=== PATIENT | female | born 1965 | race African-American/Black ===

== ENCOUNTER 2019-12-10 06:04 | Observation (INO) ==
[2019-12-10 06:43] LABS: Basophils % 0.5 % (0.0-0.8); Eosinophils # 0.1 10*3/uL (0.0-0.87); Hematocrit 36.8 VOL% (35.7-47.0); Hemoglobin 11.3 GM/DL (12.0-16.0); Immature Granulocytes % 0.3 %; Immature Granulocytes Absolute 0.02 #; Lymphocytes # 1.7 10*3/uL (1.4-4.0); Mean Corpuscular HGB Conc 30.7 GM/DL (32-36); Mean Corpuscular Volume 98.9 FL (87-102); Mean Platelet Volume 9.6 FL (9.6-12.0); Monocytes % 6.5 % (1.7-12.7); Neutrophils % 69.7 % (38.7-73.9); Platelet Count 273 T/CUMM (130-400); Red Blood Count 3.72 MC/CUMM (3.8-5.5); Red Cell Distribution Width 13.6 % (9.3-17.3); White Blood Count 7.7 T/CUMM (4-12)
[2019-12-10 07:02] LABS: Albumin 3.5 G/DL (3.4-5.0); Bilirubin,Total 1.3 MG/DL (0.2-1.0); Calcium 9.1 MG/DL (8.5-10.1); Osmolality,Calculated 268.4 MOS/KG (273-304); Total Protein 7.7 G/DL (6.4-8.3)
[2019-12-10] MEDS ORDERED: ONDANSETRON 4 MG/2 ML VIAL IV PRN (09:25)
[2019-12-10] MEDS ORDERED: ACETAMINOPHEN 325 MG TABLET PO PRN (09:25)
[2019-12-10] MEDS ORDERED: guaiFENesin 200 MG/10 ML UDCUP PO PRN (11:11)
[2019-12-10 13:28] LABS: Troponin I < 0.015 NG/ML (0.00-0.045)
[2019-12-10] MEDS: METOPROLOL SUCCINATE XL 25 MG TABLET PO SCH (13:28)
[2019-12-10] MEDS: ASPIRIN EC 81 MG TABLET PO SCH (13:28)
[2019-12-10] MEDS: CHLORTHALIDONE 25 MG TABLET PO SCH (13:28)
[2019-12-10] MEDS: amLODIPine 10 MG TABLET PO SCH (13:28)
[2019-12-10] MEDS: ALBUTEROL/IPRATROPIUM 3 ML NEB RESP TX SCH ×2 (13:50→19:18)
[2019-12-10] MEDS: predniSONE 20 MG TABLET PO SCH (17:20)
[2019-12-11] MEDS: ALBUTEROL/IPRATROPIUM 3 ML NEB RESP TX SCH ×2 (01:40→07:16)
[2019-12-11 04:52] LABS: Apearance,Urine Slightly Hazy (Clear); Bacteria,Urine Many /HPF (Few); Bilirubin,Urine Negative (Negative); Blood, Urine Moderate mg/dL (Negative); Glucose,Urine (UA) Negative (Negative); Ketones,Urine Negative (Negative); Mucus,Urine Occasional /LPF (Occasional); Nitrite,Urine Negative (Negative); Protein,Urine Negative; RBC,Urine 1 /HPF (0-4); Squamous Epithelial Cell,Urine Occasional /HPF (0-10); Urine Color Yellow (Yellow); Urine Specific Gravity 1.019 (1.001-1.035); Urine Urobilinogen < 2.0 EU/DL (0.2-1.0); WBC,Urine 5 /HPF (0-6)
[2019-12-11 05:23] LABS: Basophils % 0.3 % (0.0-0.8); Hematocrit 37.4 VOL% (35.7-47.0); Hemoglobin 11.8 GM/DL (12.0-16.0); Immature Granulocytes % 0.3 %; Immature Granulocytes Absolute 0.02 #; Lymphocytes # 1.8 10*3/uL (1.4-4.0); Lymphocytes % 22.5 % (21.3-54.2); Mean Corpuscular HGB Conc 31.6 GM/DL (32-36); Mean Corpuscular Volume 96.6 FL (87-102); Mean Platelet Volume 9.8 FL (9.6-12.0); Monocytes % 3.1 % (1.7-12.7); Neutrophils % 73.8 % (38.7-73.9); Platelet Count 325 T/CUMM (130-400); Red Blood Count 3.87 MC/CUMM (3.8-5.5); Red Cell Distribution Width 13.8 % (9.3-17.3); White Blood Count 7.9 T/CUMM (4-12)
[2019-12-11 05:49] LABS: Calcium 9.5 MG/DL (8.5-10.1); Osmolality,Calculated 273.2 MOS/KG (273-304); Risk Ratio 2.3; Thyroid Stimulating Hormone 0.878 uIU/ml (0.358-3.74)
[2019-12-11] MEDS ORDERED: POTASSIUM CHLORIDE 20 MEQ TABLET PO ONE (07:47)
[2019-12-11 08:05] VITALS: BP 129/70
[2019-12-11] MEDS ORDERED: PANTOPRAZOLE 40 MG TABLET PO SCH (09:00)
[2019-12-11] MEDS: METOPROLOL SUCCINATE XL 25 MG TABLET PO SCH (09:04)
[2019-12-11] MEDS: predniSONE 20 MG TABLET PO SCH (09:05)
[2019-12-11] MEDS: ASPIRIN EC 81 MG TABLET PO SCH (09:05)
[2019-12-11] MEDS: CHLORTHALIDONE 25 MG TABLET PO SCH (09:05)
[2019-12-11] MEDS: amLODIPine 10 MG TABLET PO SCH (09:05)
== END 2019-12-11 12:21 | disposition home or self-care (01) ==
LOC: EDBD → EDUNIT# → N.ED 06:04 → N.EDINP 06:04 → N.2W 10:06
PROVIDERS: ADMIT Internal Medicine; ATTEND Internal Medicine